=== PATIENT | female | born 1995 | race Caucasian/White ===

== ENCOUNTER 2019-10-24 11:52 | Emergency (ER) | payer MEDICAID ==
[~2019-10-24] VITALS: Ht 162.6 cm; Wt 68.3 kg
[2019-10-24 12:07] VITALS: BP 115/88
--- NOTE | 2019-10-24 12:53 | NUR ---
TO ROOM FROM LOBBY.
--- NOTE | 2019-10-24 13:28 | NUR ---
PT HAS CO OF ABDOMINAL PAIN, BACK PAIN. N/V/D. PAIN WORSENING THIS AM. DENIES CP OR SOB.
[2019-10-24] MEDS ORDERED: IBUPROFEN 200 MG TABLET PO ONE (13:30)
[2019-10-24 13:46] LABS: BASOPHILS # (AUTO) 0.07 x10^3/uL (0-0.1); BASOPHILS % (AUTO) 1 % (0-1); EOSINOPHILS # (AUTO) 0.04 x10^3/uL (0-0.4); EOSINOPHILS % (AUTO) 0 % (1-7); LYMPHOCYTES # (AUTO) 2.64 x10^3/uL (1-3.4); LYMPHOCYTES % (AUTO) 26 % (22-44); MD NO; MEAN CORPUSCULAR HEMOGLOBIN 29.7 pg (27.0-34.8); MEAN CORPUSCULAR HGB CONC 33.2 g/dL (32.4-35.8); MEAN CORPUSCULAR VOLUME 89.4 fL (80-100); MEAN PLATELET VOLUME 8.2 fL (7.4-10.4); MONOCYTES # (AUTO) 0.85 x10^3/uL (0.2-0.8); MONOCYTES % (AUTO) 8 % (2-9); NEUTROPHILS # (AUTO) 6.65 x10^3/uL (1.8-6.8); NEUTROPHILS % (AUTO) 65 % (42-75); PLATELET COUNT 405 x10^3/uL (130-400); RED BLOOD COUNT 5.11 x10^6/uL (3.82-5.3); RED CELL DISTRIBUTION WIDTH 14.8 % (9.6-15.2)
[2019-10-24 13:51] LABS: MICROSCOPIC NOT IND
[2019-10-24 13:58] LABS: ALANINE AMINOTRANSFERASE 9 U/L (12-78); ALBUMIN 4.1 g/dL (3.4-5.0); ANION GAP 7 mmol/L (5-15); CALCIUM 9.1 mg/dL (8.5-10.1); CHLORIDE 108 mmol/L (98-107)
[2019-10-24 13:59] LABS: CULTURE INDICATED? NO
[2019-10-24 14:03] LABS: ALKALINE PHOSPHATASE 72 U/L (45-117); BILIRUBIN,TOTAL 0.8 mg/dL (0.2-1.0); CREATININE 0.95 mg/dL (0.55-1.02)
[2019-10-24] MEDS ORDERED: SERT-238 PO (14:08)
[2019-10-24] MEDS ORDERED: IBUPROFEN 600 MG TABLET ONE (14:43)
--- NOTE | 2019-10-24 14:52 | NUR ---
Patient/Caregiver given discharge instructions and they have confirmed that they understand the instructions. Patient ambulatory with steady gait.
== END 2019-10-24 15:01 | disposition home or self-care (01) ==
LOC: ED 14:20
DX: E86.0 Dehydration (principal); J02.8 Acute pharyngitis due to other specified organisms; N92.4 Excessive bleeding in the premenopausal period
CPT/HCPCS: 36415; 80053; 81003; 84703; 85025; 99283